=== PATIENT | male | born 1960 | race Caucasian/White ===

== ENCOUNTER 2019-03-13 09:57 | Emergency (ER) | payer OTHER ==
[~2019-03-13] VITALS: Ht 170.2 cm; Wt 70.0 kg
[2019-03-13 10:04] VITALS: Ht 170.2 cm; Wt 70.0 kg
[2019-03-13 13:05] VITALS: BP 158/102; PULSE 86; RESP 16
--- NOTE | 2019-03-13 13:30 | ERD ---
ER Documentation Chief Complaint Chief Complaint BIB [facility] FOR EVAL OF DIZZINESS AFTER TAKING NORCO YESTERDAY. HPI This is a 59-year-old male presents for evaluation of dizziness. Patient states that he was at [facility], and was evaluated for chest pain, and was given [place], he states that the [place] feet him feel "dizzy". 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 He denies any suicidal or homicidal ideations. ROS All systems reviewed and are negative except as per history of present illness. Allergies Allergies: Coded Allergies: tetracycline (Verified Allergy, Unknown, 03/13/19) acetaminophen (Verified Adverse Reaction, Unknown, DIZZINESS, 03/13/19) hydrocodone (Verified Adverse Reaction, Unknown, DIZZINESS, 03/13/19) PMhx/Soc History of Surgery: Yes (APPY ) Anesthesia Reaction: No Hx Neurological Disorder: No Hx Respiratory Disorders: No Hx Cardiac Disorders: Yes (HTN) Hx Psychiatric Problems: No Hx Miscellaneous Medical Probl: No Hx Alcohol Use: Yes (OCASSIONAL ) Hx Substance Use: No Hx Tobacco Use: No Smoking Status: Never smoker Physical Exam Vitals Vital Signs Date Temp Pulse Resp B/P (MAP) Pulse Ox O2 O2 Flow FiO2 Time Delivery Rate 03/13/19 86 16 158/102 99 Room Air 13:05 (120) 03/13/19 98.4 72 17 174/80 99 10:04 (111) Physical Exam Const: Well-developed, well-nourished, he is tangential in conversation, but is directable, and can endorse a plan of care Head: Atraumatic Eyes: Normal Conjunctiva ENT: Normal External Ears, Nose and Mouth. Neck: Full range of motion. No meningismus. Resp: Clear to auscultation bilaterally Cardio: Regular rate and rhythm, no murmurs Abd: Soft, non tender, non distended. Normal bowel sounds Skin: No petechiae or rashes Back: No midline or flank tenderness Ext: No cyanosis, or edema Neur: Awake and alert Psych: No suicidal or homicidal ideation patient's, patient does appear to have some delusions, Result Diagram: 03/13/19 1024 03/13/19 1024 Results 24 hrs Laboratory Tests Test 03/13/19 10:24 White Blood Count 7.3 10^3/ul Red Blood Count 4.41 10^6/ul Hemoglobin 12.7 g/dl Hematocrit 37.7 % Mean Corpuscular Volume 85.5 fl Mean Corpuscular Hemoglobin 28.8 pg Mean Corpuscular Hemoglobin Concent 33.7 g/dl Red Cell Distribution Width 14.5 % Platelet Count 176 10^3/UL Mean Platelet Volume 11.4 fl Immature Granulocytes % 0.400 % Neutrophils % 74.7 % Lymphocytes % 14.3 % Monocytes % 7.5 % Eosinophils % 2.0 % Basophils % 1.1 % Nucleated Red Blood Cells % 0.0 /100WBC Immature Granulocytes # 0.030 10^3/ul Neutrophils # 5.5 10^3/ul Lymphocytes # 1.1 10^3/ul Monocytes # 0.6 10^3/ul Eosinophils # 0.2 10^3/ul Basophils # 0.1 10^3/ul Nucleated Red Blood Cells # 0.0 10^3/ul Sodium Level 138 mmol/L Potassium Level 3.7 mmol/L Chloride Level 106 mmol/L Carbon Dioxide Level 28 mmol/L Anion Gap 4 Blood Urea Nitrogen 22 mg/dl Creatinine 0.95 mg/dl Est Glomerular Filtrat Rate mL/min > 60 mL/min Glucose Level 102 mg/dl Calcium Level 9.2 mg/dl Troponin I < 0.012 ng/ml Procedures/MDM This is a 59-year-old male who presents for evaluation of dizziness. On exam patient is afebrile and nontoxic-appearing, he has some delusional behavior, however he is able to endorse a plan of care, he has no suicidal ideations or homicidal ideations and does not appear acutely manic. Thus at this point I do not feel that patient requires an psychiatric consult. Patient's work-up was overall unremarkable, at discharge she was in no distress. Departure Diagnosis: Primary Impression: Dizziness Condition: Stable Patient Instructions: Dizziness, Unk Cause Additional Instructions: Call your primary care doctor TOMORROW for an appointment during the next 2-3 days.See the doctor sooner or return here if your condition worsens before your appointment time. EDIE MORLEY MD Mar 13, 2019 13:29
== END 2019-03-13 16:33 | disposition home or self-care (01) ==
LOC: E/R 09:57
DX: R42 Dizziness and giddiness (principal); I10 Essential (primary) hypertension
CPT/HCPCS: 80048; 84484; 85025; 93005; Z7502

== ENCOUNTER 2019-03-21 07:11 | Emergency (ER) | payer OTHER ==
[~2019-03-21] VITALS: Wt 90.0 kg
[2019-03-21 07:17] VITALS: BP 155/89; PULSE 90; RESP 18
[2019-03-21] MEDS ORDERED: IBUPROFEN 800 MG TAB PO ONE (08:00)
[2019-03-21] MEDS ORDERED: TRAM50TA2 PO (08:46)
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
== END 2019-03-21 08:54 | disposition home or self-care (01) ==
LOC: FTE 07:11
DX: R22.0 Localized swelling, mass and lump, head (principal); I10 Essential (primary) hypertension
CPT/HCPCS: 70486; Z7502; Z7610

== ENCOUNTER 2019-03-25 21:52 | Inpatient (IN) | payer OTHER ==
[~2019-03-25] VITALS: Ht 193 cm; Wt 84.0 kg
[~2019-03-25 21:52] MED LIST: TRAM50TA2 PO
[2019-03-25] MEDS ORDERED: NITROGLYCERIN 2% 1 GM OINT PKT TD STA (22:07)
[2019-03-25] MEDS ORDERED: ASPIRIN 325 MG TAB PO STA (22:07)
[2019-03-25] MEDS ORDERED: ONDANSETRON 4 MG INJ IV STA (22:07)
[2019-03-25] MEDS ORDERED: morphine 4 MG/ML VIAL IV STA (22:07)
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
[2019-03-25] MEDS ORDERED: ONDANSETRON 4 MG INJ IV PRN (23:30)
[2019-03-26] VITALS (10 sets, daily range): BP systolic 116–151; BP diastolic 59–96; PULSE 64–86; RESP 19–20; Ht 193 cm; Wt 84.0 kg
[2019-03-26] MEDS ORDERED: NITROGLYCERIN (SL) 0.4 MG TAB SL PRN (03:00)
[2019-03-26] MEDS ORDERED: ONDANSETRON 4 MG INJ IV PRN (03:00)
[2019-03-26] MEDS ORDERED: ALBUTEROL/IPRATROPIUM (NEB) 3 ML AMP HHN PRN (03:00)
[2019-03-26] MEDS ORDERED: NACL 0.9% 3 ML SYG IV SCH (03:00)
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
[2019-03-26] MEDS: ASPIRIN 81 MG TAB PO SCH (09:00)
[2019-03-26] MEDS: ENOXAPARIN 40 MG/0.4 ML SYG SC SCH (09:00)
[2019-03-26] MEDS: traMADol 50 MG TAB PO PRN (12:31)
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
[2019-03-26] MEDS ORDERED: UREA 40% CR 7OZ TOP SCH (14:00)
[2019-03-26] MEDS: UREA 40% CR 7OZ TOP SCH (21:50)
[2019-03-26] MEDS: morphine 2 MG INJ IV PRN (22:00)
[2019-03-27] VITALS (14 sets, daily range): BP systolic 122–191; BP diastolic 69–109; PULSE 68–87; RESP 18–20
[2019-03-27] MEDS: ASPIRIN 81 MG TAB PO SCH (08:30)
[2019-03-27] MEDS: ENOXAPARIN 40 MG/0.4 ML SYG SC SCH (08:31)
[2019-03-27] MEDS: UREA 40% CR 7OZ TOP SCH ×2 (08:31→22:07)
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
[2019-03-27] MEDS: morphine 2 MG INJ IV PRN ×3 (11:53→23:40)
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
[2019-03-27] MEDS: traMADol 50 MG TAB PO PRN (22:07)
[2019-03-28] VITALS (13 sets, daily range): BP systolic 103–183; BP diastolic 65–105; PULSE 67–102; RESP 18–22
[2019-03-28] MEDS: morphine 2 MG INJ IV PRN ×4 (03:47→22:14)
[2019-03-28] MEDS: ENOXAPARIN 40 MG/0.4 ML SYG SC SCH (08:39)
[2019-03-28] MEDS: ASPIRIN 81 MG TAB PO SCH (08:54)
[2019-03-28] MEDS: UREA 40% CR 7OZ TOP SCH ×2 (13:34→21:00)
--- NOTE | 2019-03-28 14:03 | RADRPT ---
Echocardiogram Report Patient Name: Chris CARDENAS ID: [id number] : 1960 (59y 1m)Study Date: 03/26/2019 7:48:57 AM Gender: MAccession #: [id number] Tech: Nola Beck [facility] Location: 601- Ref.Physician: LIVIER AMADOR Height(Cm): BSA: Weight(Kg): Quality: AdequateOrder Physician: LIVIER AMADOR Account #: Procedures: Echocardiographic Report: Transthoracic echocardiogram with complete 2D, M-Mode, and doppler examination. Indications: Chest Pain. Measurements: 2D/M Mode Doppler Measurement Value Normal Range Measurement Value Normal Range LVIDd 2D 3.7 [ 4.2 - 5.8 ] cm AV Peak Ricki 1.1 [ 100.0 - 170.0 ] cm/sec LVIDs 2D 2.4 [ 2.5 - 4.0 ] cm AV Peak PG 5.0 [ 2.0 - 9.0 ] mmHg LVPWd 2D 1.3 [ 0.6 - 1.0 ] cm LVOT Peak Ricki 0.7 [ 70.0 - 110.0 ] cm/sec IVSd 2D 0.9 [ 0.6 - 1.0 ] cm LVOT Peak PG 2.0 [ 2.0 - 6.0 ] mmHg IVS/LVPW 2D 0.7 ratio MV E Peak Ricki 0.5 [ 60.0 - 130.0 ] cm/sec AoR Diam 2D 3.2 [ 2.6 - 3.4 ] cm MV A Peak Ricki 0.3 [ 100.0 - 120.0 ] cm/sec LA/Ao 2D 1 ratio MV E/A 2.0 [ 0.8 - 1.5 ] ratio LA Dimen 2D 2.8 [ 3.0 - 4.0 ] cm MV Decel Time 137 [ 104 - 258 ] msec Lat E` Ricki 0.1 [ 10.0 - 15.0 ] cm/sec Med E` Ricki 0.1 cm/sec MV E/A 2.0 [ 0.8 - 1.5 ] ratio Findings: Left Ventricle: Normal left ventricular systolic function. Normal left ventricular cavity size. Normal left ventricular wall thickness. Ejection fraction is visually estimated at 55-60 %. Right Ventricle: Normal right ventricular size. Left Atrium: The left atrium is normal in size. Right Atrium: The right atrium is normal in size. Atrial Septum: Normal atrial septum. Ventricular septum: Normal/intact ventricular septum. Mitral Valve: Normal appearance of the mitral valve. Trace mitral regurgitation. Aortic Valve: Normal appearance of the aortic valve. No aortic regurgitation. Tricuspid Valve: Normal appearance of the tricuspid valve. Unable to obtain RVSP due to minimal presence of tricuspid regurgitation. There is trace tricuspid regurgitation. Pulmonic Valve: Normal pulmonic valve appearance. No evidence of pulmonic regurgitation. Pericardium: Normal pericardium with no significant pericardial effusion. Aorta: Normal aortic root. IVC: Normal size and normal respiratory collapse consistent with normal right atrial pressure. Conclusions: Normal left ventricular systolic function. Normal left ventricular cavity size. Normal left ventricular wall thickness. Ejection fraction is visually estimated at 55-60 %. Normal appearance of the mitral valve. Trace mitral regurgitation. Normal appearance of the tricuspid valve. Unable to obtain RVSP due to minimal presence of tricuspid regurgitation. There is trace tricuspid regurgitation. Electronically Signed By: Yong Pond 2019-03-28 14:01:47 PDT
[2019-03-28] MEDS: QUETIAPINE 25 MG TAB PO SCH ×2 (16:30→21:00)
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
[2019-03-28] MEDS: NIFEdipine (XL) 90 MG TAB PO SCH (17:51)
[2019-03-29 02:09] VITALS: BP 119/63; PULSE 72; RESP 18
[2019-03-29 08:01] VITALS: BP 138/83; PULSE 89; RESP 18
[2019-03-29] MEDS: ASPIRIN 81 MG TAB PO SCH (08:47)
[2019-03-29] MEDS: UREA 40% CR 7OZ TOP SCH ×2 (08:47→21:07)
[2019-03-29] MEDS: ENOXAPARIN 40 MG/0.4 ML SYG SC SCH (08:48)
[2019-03-29] MEDS: NIFEdipine (XL) 90 MG TAB PO SCH (08:48)
[2019-03-29] MEDS: QUETIAPINE 25 MG TAB PO SCH ×3 (08:48→21:00)
[2019-03-29] MEDS: traMADol 50 MG TAB PO PRN ×2 (08:48→19:05)
[2019-03-29 13:27] VITALS: BP 137/75; PULSE 105; RESP 18
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
[2019-03-29] MEDS ORDERED: GUAIFENESIN 20 MG/ML 5ML CUP PO PRN (16:30)
[2019-03-29 20:00] VITALS: BP 126/79; PULSE 99; RESP 19
[2019-03-30 02:00] VITALS: BP 125/80; PULSE 91; RESP 18
[2019-03-30 07:42] VITALS: BP 140/92; PULSE 86; RESP 18
[2019-03-30] MEDS: traMADol 50 MG TAB PO PRN (07:54)
[2019-03-30] MEDS: ENOXAPARIN 40 MG/0.4 ML SYG SC SCH (08:41)
[2019-03-30] MEDS: QUETIAPINE 25 MG TAB PO SCH ×3 (08:41→21:00)
[2019-03-30] MEDS: ASPIRIN 81 MG TAB PO SCH (08:49)
[2019-03-30] MEDS: NIFEdipine (XL) 90 MG TAB PO SCH (08:49)
[2019-03-30] MEDS: UREA 40% CR 7OZ TOP SCH ×2 (08:54→21:00)
[2019-03-30 14:00] VITALS: BP 123/72; PULSE 98; RESP 18
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
[2019-03-30 20:00] VITALS: BP 133/84; PULSE 110; RESP 18
[2019-03-31] MEDS: QUETIAPINE 25 MG TAB PO SCH ×2 (09:00→13:00)
[2019-03-31] MEDS: ENOXAPARIN 40 MG/0.4 ML SYG SC SCH (09:00)
[2019-03-31] MEDS: UREA 40% CR 7OZ TOP SCH (09:00)
[2019-03-31] MEDS: NIFEdipine (XL) 90 MG TAB PO SCH (09:36)
[2019-03-31] MEDS: ASPIRIN 81 MG TAB PO SCH (09:36)
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
== END 2019-03-31 16:30 | disposition left against medical advice (07) | DRG 313 ==
LOC: E/R 21:52 → 6WM 23:19 → OBSVTOIN 03-28 08:51 → 5EC 03-28 19:53
PROVIDERS: ADMIT Internal Medicine; ATTEND Hospitalist
DX: R07.9 Chest pain, unspecified (principal); F30.9 Manic episode, unspecified; I10 Essential (primary) hypertension; Z59.0 Homelessness; M79.10 Myalgia, unspecified site
CPT/HCPCS: 36415; 71045; 80048; 80053; 80061; 82550; 82553; 83036; 83735; 84100; 84443; 84484; 85025; 93005; 93306; 94664; 96374; 96375; 97116; 97161; G0378; J1650; J2270; J2405

== ENCOUNTER 2019-04-19 11:31 | Emergency (ER) | payer OTHER ==
[~2019-04-19] VITALS: Ht 193 cm; Wt 79.6 kg
[2019-04-19 11:35] VITALS: Ht 193 cm; Wt 79.6 kg
--- NOTE | 2019-04-19 13:19 | ERD ---
ER Documentation Chief Complaint Chief Complaint chest pain with dizziness since morning , also c/o back pain HPI 59-year-old male with a history of hypertension and family history of coronary artery disease presenting to the ER complaining of left-sided chest pain that has been sharp since this morning with associated dizziness. Pain radiates to his right arm. No alleviating or exacerbating factors. No associated diaphoresis, shortness of breath, nausea, vomiting, abdominal pain, fever, chills, hemoptysis or cough. Of note patient has had 4 visits to the ER for similar complaints within the past 1 month. On his last visit which was about 2 weeks ago, he was admitted to the hospital for ACS rule out. He is denying any leg swelling, recent travel, recent immobilization or history of blood clots. ROS All systems reviewed and are negative except as per history of present illness. Medications Home Meds Discontinued Scripts Tramadol HCl (Tramadol HCl) 50 Mg Tablet, 50 MG PO Q4 PRN for PAIN, #20 TAB Prov:KIMBERLEE FISCHER PA-C 03/21/19 Allergies Allergies: Coded Allergies: tetracycline (Verified Allergy, Unknown, 04/19/19) hydrocodone (Verified Adverse Reaction, Unknown, DIZZINESS, 04/19/19) PMhx/Soc History of Surgery: Yes (appendectomy) Anesthesia Reaction: No Hx Neurological Disorder: No Hx Respiratory Disorders: No Hx Cardiac Disorders: Yes (HTN) Hx Psychiatric Problems: No Hx Miscellaneous Medical Probl: No (Per EMR, no documentation PmHx) Hx Alcohol Use: Yes (OCCASSIONALLY) Hx Substance Use: No Hx Tobacco Use: No Smoking Status: Current every day smoker (e-cigs) FmHx Family History: coronary disease Physical Exam Vitals Vital Signs Date Temp Pulse Resp B/P (MAP) Pulse Ox O2 O2 Flow FiO2 Time Delivery Rate 04/19/19 84 18 166/82 100 Room Air 14:53 (110) 04/19/19 78 18 151/86 100 Room Air 13:00 (107) 04/19/19 98.4 91 18 164/89 96 11:35 (114) Physical Exam Const: No acute distress Head: Atraumatic Eyes: Normal Conjunctiva ENT: Normal External Ears, Nose and Mouth. Neck: Full range of motion. No meningismus. Resp: Clear to auscultation bilaterally Cardio: Regular rate and rhythm, no murmurs. 2+ distal pulses Abd: Soft, non tender, non distended. Normal bowel sounds Skin: No petechiae or rashes Back: No midline or flank tenderness Ext: No cyanosis, or edema Neur: Awake and alert Psych: Normal Mood and Affect. Somewhat delusional with regard to where he works. Result Diagram: 04/19/19 1324 04/19/19 1324 Results 24 hrs Laboratory Tests Test 04/19/19 13:24 White Blood Count 7.2 10^3/ul Red Blood Count 4.31 10^6/ul Hemoglobin 12.6 g/dl Hematocrit 38.3 % Mean Corpuscular Volume 88.9 fl Mean Corpuscular Hemoglobin 29.2 pg Mean Corpuscular Hemoglobin Concent 32.9 g/dl Red Cell Distribution Width 14.3 % Platelet Count 172 10^3/UL Mean Platelet Volume 11.4 fl Immature Granulocytes % 0.300 % Neutrophils % 71.9 % Lymphocytes % 14.1 % Monocytes % 7.4 % Eosinophils % 5.3 % Basophils % 1.0 % Nucleated Red Blood Cells % 0.0 /100WBC Immature Granulocytes # 0.020 10^3/ul Neutrophils # 5.1 10^3/ul Lymphocytes # 1.0 10^3/ul Monocytes # 0.5 10^3/ul Eosinophils # 0.4 10^3/ul Basophils # 0.1 10^3/ul Nucleated Red Blood Cells # 0.0 10^3/ul Sodium Level 139 mmol/L Potassium Level 3.9 mmol/L Chloride Level 104 mmol/L Carbon Dioxide Level 28 mmol/L Anion Gap 7 Blood Urea Nitrogen 18 mg/dl Creatinine 0.90 mg/dl Est Glomerular Filtrat Rate mL/min > 60 mL/min Glucose Level 87 mg/dl Calcium Level 9.3 mg/dl Troponin I < 0.012 ng/ml Current Medications Medications Dose Sig/Marce Start Time Status Last (Trade) Ordered Route PRN Stop Time Admin Dose Reason Admin Ibuprofen 600 mg ONCE ONCE 04/19/19 DC 04/19/19 (Motrin) PO 15:00 14:50 04/19/19 15:00 Procedures/MDM EMERGENT LABS AND DIAGNOSTIC STUDIES: Lab Results above were reviewed and interpreted by me. CBC: no anemia or evidence of infection BMP: No e/o clinically significant electrolyte abnormality severe acidosis, alkalosis, renal failure, diabetic ketoacidosis Troponin within normal limits, not indicative of cardiac ischemia 12-lead EKG was interpreted by Felipa Gonzales MD: Normal Sinus Rhythm with ventricular rate of 90 beats per minute Rightward axis Normal intervals No acute ST or T wave changes suggestive of acute ischemia or STEMI. Radiology Results as interpreted by Radiology below were reviewed by Yaniv Gonzales MD: Chest x-ray shows no acute abnormalities Initial Nursing notes reviewed. Previous Medical Records requested via the Electronic Health Record. EMERGENCY DEPARTMENT COURSE / MEDICAL DECISION MAKING: patient is presenting with left-sided chest pain that he has had for quite some time, worsened today. Vitals were unremarkable other than mild hypertension. H owever I have a low suspicion for aortic dissection, pulmonary embolism, or ACS. Per his record, he was admitted about 1 month ago for similar chest pains and was ruled out for ACS and discharged. It seems that the patient left AGAINST MEDICAL ADVICE during that visit. The patient clearly has signs of mental illness with grandiosity. I explained to the patient that his labs today were normal as was his EKG and chest x-ray. It does not seem that he has an emergent medical condition. Prior to me completing my explanation and recommendations, the patient became very agitated. He stated that he wanted to be admitted and that he was not leaving. He then "fired" me from his care and stated that he wanted another physician. I told him that there was no other physician at this time that could see him. However the patient was not letting me speak and was very agitated. At that time, patient was provided with discharge paperwork and follow-up instructions. Departure Diagnosis: Primary Impression: Chest pain Chest pain type: unspecified Qualified Codes: R07.9 - Chest pain, unsp ecified Condition: Stable EKBRIENELLIE R. MD Apr 19, 2019 13:19
[2019-04-19 14:53] VITALS: BP 166/82; PULSE 84; RESP 18
[2019-04-19] MEDS ORDERED: IBUPROFEN 600 MG TAB PO ONE (15:00)
== END 2019-04-19 14:55 | disposition home or self-care (01) ==
LOC: E/R 11:31
DX: R07.9 Chest pain, unspecified (principal); I10 Essential (primary) hypertension; F17.210 Nicotine dependence, cigarettes, uncomplicated
CPT/HCPCS: 36415; 71045; 80048; 84484; 85025; 93005; Z7502; Z7610

== ENCOUNTER 2019-04-24 05:09 | Emergency (ER) | payer OTHER ==
[~2019-04-24] VITALS: Ht 193 cm; Wt 79.2 kg
[2019-04-24 05:11] VITALS: Ht 193 cm; Wt 79.2 kg
--- NOTE | 2019-04-24 06:51 | ERD ---
ER Documentation Chief Complaint Chief Complaint RIGHT FLANK PAIN, NO BM X3 DAYS. HPI This is a 59-year-old male who presents for evaluation of right flank pain, and decreased bowel movements. He states that he has not had a bowel movement last 3 days, he is still passing gas. Yesterday he ate something, and and states that he did not sit well with him. He denies any chest pain or shortness of breath. He has not had any dysuria or hematuria ROS All systems reviewed and are negative except as per history of present illness. Medications Home Meds Discontinued Scripts Tramadol HCl (Tramadol HCl) 50 Mg Tablet, 50 MG PO Q4 PRN for PAIN, #20 TAB Prov:KIMBERLEE FISCHER PA-C 03/21/19 Allergies Allergies: Coded Allergies: tetracycline (Verified Allergy, Unknown, 04/24/19) hydrocodone (Verified Adverse Reaction, Unknown, DIZZINESS, 04/24/19) PMhx/Soc History of Surgery: Yes (appendectomy) Anesthesia Reaction: No Hx Neurological Disorder: No Hx Respiratory Disorders: No Hx Cardiac Disorders: Yes (HTN) Hx Psychiatric Problems: No Hx Miscellaneous Medical Probl: No (Per EMR, no documentation PmHx) Hx Alcohol Use: Yes (OCCASSIONALLY) Hx Substance Use: No Hx Tobacco Use: No Physical Exam Vitals Vital Signs Date Temp Pulse Resp B/P (MAP) Pulse Ox O2 O2 Flow FiO2 Time Delivery Rate 04/24/19 78 14 147/90 100 Room Air 07:07 (109) 04/24/19 96.4 107 18 137/84 96 05:11 (101) Physical Exam Const: Ambulatory, no acute distress, afebrile Head: Atraumatic Eyes: Normal Conjunctiva ENT: Normal External Ears, Nose and Mouth. Neck: Full range of motion. No meningismus. Resp: Clear to auscultation bilaterally Cardio: Regular rate and rhythm, no murmurs Abd: Soft, non tender, non distended, no rebound or guarding. Normal bowel sounds Skin: No petechiae or rashes Back: No midline or flank tenderness Ext: No cyanosis, or edema Neur: Awake and alert Psych: Patient exhibiting delusional behavior, he has no suicidal or homicidal ideation. Result Diagram: 04/24/1970104/24/19 07 Results 24 hrs Laboratory Tests Test 04/24/19 07:02 04/24/19 07:03 White Blood Count 8.1 10^3/ul Red Blood Count 4.54 10^6/ul Hemoglobin 13.2 g/dl Hematocrit 39.6 % Mean Corpuscular Volume 87.2 fl Mean Corpuscular Hemoglobin 29.1 pg Mean Corpuscular Hemoglobin Concent 33.3 g/dl Red Cell Distribution Width 13.9 % Platelet Count 178 10^3/UL Mean Platelet Volume 11.6 fl Immature Granulocytes % 0.400 % Neutrophils % 72.6 % Lymphocytes % 14.5 % Monocytes % 7.3 % Eosinophils % 4.3 % Basophils % 0.9 % Nucleated Red Blood Cells % 0.0 /100WBC Immature Granulocytes # 0.030 10^3/ul Neutrophils # 5.9 10^3/ul Lymphocytes # 1.2 10^3/ul Monocytes # 0.6 10^3/ul Eosinophils # 0.4 10^3/ul Basophils # 0.1 10^3/ul Nucleated Red Blood Cells # 0.0 10^3/ul Sodium Level 141 mmol/L Potassium Level 3.8 mmol/L Chloride Level 103 mmol/L Carbon Dioxide Level 28 mmol/L Anion Gap 10 Blood Urea Nitrogen 21 mg/dl Creatinine 0.93 mg/dl Est Glomerular Filtrat Rate mL/min > 60 mL/min Glucose Level 97 mg/dl Calcium Level 9.7 mg/dl Total Bilirubin 1.2 mg/dl Direct Bilirubin 0.00 mg/dl Indirect Bilirubin 1.2 mg/dl Aspartate Amino Transf (AST/SGOT) 49 IU/L Alanine Aminotransferase (ALT/SGPT) 49 IU/L Alkaline Phosphatase 68 IU/L Total Protein 7.9 g/dl Albumin 4.4 g/dl Globulin 3.50 g/dl Albumin/Globulin Ratio 1.25 Lipase 74 U/L Urine Color YELLOW Urine Clarity CLEAR Urine pH 5.0 Urine Specific [place] 1.013 Urine Ketones 1+ mg/dL Urine Nitrite NEGATIVE mg/dL Urine Bilirubin NEGATIVE mg/dL Urine Urobilinogen NEGATIVE mg/dL Urine Leukocyte Esterase NEGATIVE Nicole/ul Urine Hemoglobin NEGATIVE mg/dL Urine Glucose NEGATIVE mg/dL Urine Total Protein NEGATIVE mg/dl Current Medications Medications Dose Sig/Marce Start Time Status Last (Trade) Ordered Route PRN Stop Time Admin Dose Reason Admin 1,000 mg ONCE STAT 04/24/19 DC 04/24/19 Acetaminophen PO 07:36 07:40 (Tylenol 04/24/19 07:37 Tab) Procedures/MDM 59-year-old male who is well-known to [facility] who presents for evaluation of intermittent right flank pain, as well as constipation. He most likely has an underlying psychiatric disorder, as he appears to exhibit grandiose delusions, however he is lucid and alert and oriented x3, he can endorse a plan of care, and he has no suicidal or homicidal ideations, etc. not feel that he requires an emergent psychiatric consult. Regarding his abdominal symptoms, consideration includes kidney stones, versus small bowel infection also considered, labs and CT abdomen pelvis ordered. 8:19 AM: Labs relatively overall unremarkable, patient continues to feel well, no evidence of small bowel obstruction. Multiple gallstones seen, patient stated that he was aware of this, he has no clinical signs of biliary obstruction, and his LFTs are not markedly elevated, at this point I feel the patient is stable for discharge home at discharge she was in no distress. EKG: Rate/Rhythm: Normal Sinus Rhythm QRS, ST, T-waves: No changes consistent w/ acute ischemia Impression: No evidence of ischemia or arrhythmia Departure Diagnosis: Primary Impression: Flank pain Additional Impression: Abdominal pain Abdominal location: unspecified location Qualified Codes: R10.9 - Unspecified abdominal pain Condition: Stable EDIE MORLEY MD Apr 24, 2019 06:51
[2019-04-24] MEDS ORDERED: ACETAMINOPHEN 500 MG TAB PO STA (07:36)
[2019-04-24] MEDS ORDERED: POLY17PO6 PO (08:21)
[2019-04-24 08:54] VITALS: BP 138/96; PULSE 67; RESP 18
== END 2019-04-24 09:03 | disposition home or self-care (01) ==
LOC: E/R 05:09
DX: R10.9 Unspecified abdominal pain (principal); I10 Essential (primary) hypertension
CPT/HCPCS: 74176; 80053; 81003; 83690; 85025; Z7502; Z7610

== ENCOUNTER 2019-05-15 12:58 | Emergency (ER) | payer SELFPAY ==
[~2019-05-15] VITALS: Ht 193 cm; Wt 78.7 kg
[~2019-05-15 12:58] MED LIST changes: +POLY17PO6 PO; -TRAM50TA2 PO
[2019-05-15 13:04] VITALS: BP 150/89; PULSE 93; RESP 18; Ht 193 cm; Wt 78.7 kg
== END 2019-05-15 13:00 | disposition left against medical advice (07) ==
LOC: FTE 12:58
DX: Z53.21 Procedure and treatment not carried out due to patient leaving prior to being seen by health care provider (principal)

== ENCOUNTER 2019-06-09 14:26 | Emergency (ER) | payer OTHER ==
[~2019-06-09] VITALS: Ht 190.5 cm; Wt 75.7 kg
[~2019-06-09 14:26] MED LIST changes: +AZIT250T PO; +D-ME473S2 PO; +IBUP-1542 PO
[2019-06-09 14:31] VITALS: BP 148/83; PULSE 90; RESP 20; Ht 190.5 cm; Wt 75.7 kg
== END 2019-06-09 14:38 | disposition home or self-care (01) ==
LOC: E/R 14:26
DX: M54.6 Pain in thoracic spine (principal); J06.9 Acute upper respiratory infection, unspecified; I10 Essential (primary) hypertension; F17.210 Nicotine dependence, cigarettes, uncomplicated
CPT/HCPCS: 99283